=== PATIENT | male | born 1965 | race Two or more races ===

== ENCOUNTER → 2018-01-13 | Outpatient (CLI) | payer OTHER ==
[2014-08-15 13:10] VITALS: BP 119/78
[~2018-01-13] MED LIST: AMLO10TA2 PO; ASPI325T8 PO; ATOR20TA58 PO; INSU100V13 SQ; METO-247 PO; NIAC250T7 PO; SAXA1TBM2 PO
--- NOTE | 2018-01-13 15:43 | KCIC ---
MRI left knee without contrast dated 01/13/2018 2:45 PM Indication: Left knee pain , pain after injury . Pain medial and lateral to patella. Comparison: No comparison is available. Technique: Routine multiplanar multisequence imaging performed. . Findings: Bone marrow signal is homogeneous. No marrow edema. There is mild tricompartmental hypertrophic change with small marginal osteophytes. Mild thinning and surface irregularity of the articular cartilage throughout. Suspected full-thickness cartilage loss at the lateral aspect of the medial tibial plateau. Small joint effusion. No intra-articular loose body. No significant popliteal cyst. Anterior cruciate ligament is of increased signal. Fibers appear to remain anatomically aligned. PCL is intact. Medial and lateral collateral complexes are intact. Iliotibial band, popliteus tendon and pes anserine complex within normal limits. Quadriceps and patellar tendon are intact. No abnormality of the medial or lateral retinaculum. There is a horizontal oblique tear posterior horn/body of medial meniscus. Blunting of the free edge of the posterior horn. Anterior horn is intact. Lateral meniscus normal in morphology and signal. IMPRESSION: 1. Complex tear posterior horn/body of medial meniscus. 2. Mild tricompartmental degenerative arthrosis and chondromalacia. There is near full-thickness cartilage loss at the medial compartment. 3. Increased signal of the anterior cruciate ligament, most likely represents mucoid degeneration. Intrasubstance partial tearing not excluded. 4. Small joint effusion. Electronically signed by: Collin Ryan MD (01/13/2018 3:40 PM) [id number]
== END | disposition home or self-care (01) ==
LOC: KCIC MRI 14:18
PROVIDERS: ATTEND Orthopaedic Surgery
DX: S83.232A Complex tear of medial meniscus, current injury, left knee, initial encounter (principal); M25.462 Effusion, left knee; M17.12 Unilateral primary osteoarthritis, left knee; M94.262 Chondromalacia, left knee; M25.762 Osteophyte, left knee; I25.2 Old myocardial infarction; Z87.442 Personal history of urinary calculi; X58.XXXA Exposure to other specified factors, initial encounter; Y93.89 Activity, other specified; Y92.89 Other specified places as the place of occurrence of the external cause; Y99.8 Other external cause status
CPT/HCPCS: 73721

== ENCOUNTER 2018-01-26 08:02 | Day surgery (SDC) | payer OTHER ==
[~2018-01-26] VITALS: Ht 175.3 cm; Wt 91.4 kg
[~2018-01-26 08:02] MED LIST changes: -AMLO10TA2 PO; +AMLO10TA6 PO; +BUPIVACAINE 0.5% 50 ML VIAL. ONE; +EPINEPHrine VIAL 30 MG/30 ML VIAL ONE; +HYDROmorphone 2 MG/ML VIAL IV PRN; +IV RINGERS,LACTATED 1000ML 1,000 ML IV SCH; +LIDOCAINE 1% PF 2 ML VIAL. ID PRN; +LIDOCAINE 1% PF 30 ML VIAL. ONE; +LISI10TA2 PO; +MORPHINE SULFATE 2 MG/ML VIAL. IV PRN; +ONDANSETRON PF 4 MG/2 ML VIAL. IV PRN; +PROCHLORPERAZINE 10 MG/2 ML VIAL. IV PRN; +SITA1TAB11 PO; +fentaNYL PF VIAL 100 MCG/2 ML VIAL IV PRN
[2018-01-26] MEDS ORDERED: ONDANSETRON PF 4 MG/2 ML VIAL. ONE (08:29)
[2018-01-26] MEDS ORDERED: MIDAZOLAM HCL/PF 2 MG/2 ML VIAL. ONE (08:29)
[2018-01-26] MEDS ORDERED: fentaNYL PF VIAL 250 MCG/5 ML VIAL ONE (08:29)
[2018-01-26] MEDS ORDERED: PROPOFOL 20 ML IV ONE (08:29)
[2018-01-26] MEDS ORDERED: DEXAMETHASONE SOD PHOS 20 MG/5 ML VIAL. ONE (08:29)
--- NOTE | 2018-01-26 08:45 | DISCH ---
DISCHARGE INSTRUCTIONS Condition on Discharge Condition on Discharge: Stable Activity After Discharge Activity Instructions for Disc: Other, see below Bathing Instructions: Shower-keep dressing dry Weight Bearing Status after Di: Non weight bearing Diet after Discharge Diet after Discharge: Regular Wound Incision Care Wound/Incision Care: Ice to area for comfort, Keep wound/cast CDI, Change dressing Contacting the [facility] after DC Call your doctor for: Concerns you may have Follow-Up Follow up with: Maciel in 2 wks ZAKIYA CARRANZA II, MD Jan 26, 2018 08:45
[2018-01-26] MEDS ORDERED: PHENYLEPHRINE in 0.9% NACL PF 1 MG/10 ML SYRINGE. IV ONE (09:40)
[2018-01-26] MEDS ORDERED: SEVOFLURANE 61 TO 120 MINUTES. IH ONE (10:02)
--- NOTE | 2018-01-26 10:04 | PDOC4 ---
Operative Note Operative Note Date of procedure: 01/26/2018 Surgeon: Jacques Carranza Senior Dentist: Tami Kendall Preoperative diagnosis: Left knee cartilage injury Postoperative diagnosis: Same Procedure performed: Left knee arthroscopy, partial meniscectomy, microfracture Findings:grade 3-4 changes 20 x 6 mm posterior aspect medial femoral condyle Intact patellofemoral cartilage Intact lateral compartment Intact lateral meniscus Intact cruciate ligaments Grade 2-3 changes mid medial femoral condyle Complex degenerative type tear medial meniscus Blood loss: 5mL Tourniquet time: less than 60 minutes Anesthesia: Gen. Reason for procedure: Patient is a very pleasant gentleman who is known to me who I had seen after an acute knee injury suffered at work. We had tried an intra-articular injection and anti-inflammatories as well as therapy to help his pain, he got good initial response to the injection, but this pain persisted. Given his clinical and radiographic features, including MRI, I had a discussion of the risks, benefits, and alternatives the above surgery and he wished to proceed. Description of procedure: Patient was greeted in the preoperative area by myself for the correct extremity was verified and marked. He was taken back to the operative suite and his antibiotics were started as he was brought back. Once in the operating room, he was transferred gently supine to the operating room table and secured to bed with all pressure points padded after successful induction of a general anesthetic. I then conducted my examination under anesthesia. Knee was stable to varus and valgus, full range of motion, negative Kita. We then applied and taped in place nonsterile tourniquet to his left upper thigh. I then had a padded bump laterally at his hip and a padded rest first foot to help maintain his leg at 90 passively. We then proceeded prep and drape left lower extremity in our usual sterile fashion and conducted our standard preoperative timeout. I then palpated and marked surface anatomy for my planned portal incisions. Extremity was then exsanguinated with an Esmarch and the tourniquet insufflated to 250 mmHg. After this, I incised skin for my anterolateral arthroscopic portal and introduced a blunt arthroscopic trocar into the suprapatellar pouch followed by the camera. I then conducted my diagnostic arthroscopy with above noted findings and upon entering the medial compartment used a spinal needle to localize an anteromedial portal and incised skin in accordance with this. This hole was dilated. I then continued on with my diagnostic arthroscopy. After completing my diagnostic arthroscopy, a I reentered the medial compartment and debrided the lesion at the posterior aspect , the remainder of this lesion had at least grade 2 changes, but an intact partial-thickness layer of cartilage. He is an open curet and shaver to debride the area free of calcified cartilage and then used a microfracture awl to puncture the subchondral bone allowing marrow extravasation, confirmed under suction from a shaver. After this, I debrided his meniscus tear back to stable edges using a combination of shaver and biter. I then placed the instruments in the suprapatellar pouch and performed repeated aspiration maneuvers with posterior palpation to remove any loose debris. After this I removed all excess arthroscopic fluid and the arthroscopic its mentation and closed the portals with simple interrupted 3-0 nylon. The leg was cleansed and dried and a sterile dressing was applied. This was held in place with an Julio César wrap. Patient was then awakened from anesthesia, tourniquet was let down. He was then transferred gently supine to the recovery room cart and taken to PACU in a stable and extubated condition. Postoperative plan is nonweightbearing 6 weeks. Hell be discharged home. Wound care instructions were discussed with his family member and given in written form. I will see him back in 2 weeks, sooner should a problem arise JACQUES CARRANZA II, MD Jan 26, 2018 10:04
[2018-01-26] MEDS ORDERED: oxyCODONE/APAP 5/325 1 TAB TABLET PO ONE (10:15)
[2018-01-26 11:20] VITALS: BP 114/70
== END 2018-01-26 11:20 | disposition home or self-care (01) ==
LOC: SURG 08:02
PROVIDERS: ATTEND Orthopaedic Surgery Sports Medicine
DX: S83.232A Complex tear of medial meniscus, current injury, left knee, initial encounter (principal); I10 Essential (primary) hypertension; E78.5 Hyperlipidemia, unspecified; E11.9 Type 2 diabetes mellitus without complications; Z98.890 Other specified postprocedural states; Z95.5 Presence of coronary angioplasty implant and graft; F17.210 Nicotine dependence, cigarettes, uncomplicated; Z83.6 Family history of other diseases of the respiratory system; Z91.041 Radiographic dye allergy status; Z79.84 Long term (current) use of oral hypoglycemic drugs; Z79.899 Other long term (current) drug therapy; W13.3XXA Fall through floor, initial encounter; Y93.39 Activity, other involving climbing, rappelling and jumping off; Y92.89 Other specified places as the place of occurrence of the external cause; Y99.8 Other external cause status
CPT/HCPCS: 29879; 29881; 82962; A7015; C1782; J0171; J0690; J1100; J2250; J2370; J2405; J2704; J3010; J3490

== ENCOUNTER → 2019-10-13 | Outpatient (CLI) | payer OTHER ==
[~2019-10-13] MED LIST changes: -AMLO10TA6 PO; +AMLO10TA8 PO; -BUPIVACAINE 0.5% 50 ML VIAL. ONE; -EPINEPHrine VIAL 30 MG/30 ML VIAL ONE; -HYDROmorphone 2 MG/ML VIAL IV PRN; -IV RINGERS,LACTATED 1000ML 1,000 ML IV SCH; -LIDOCAINE 1% PF 2 ML VIAL. ID PRN; -LIDOCAINE 1% PF 30 ML VIAL. ONE; -MORPHINE SULFATE 2 MG/ML VIAL. IV PRN; -ONDANSETRON PF 4 MG/2 ML VIAL. IV PRN; -PROCHLORPERAZINE 10 MG/2 ML VIAL. IV PRN; -fentaNYL PF VIAL 100 MCG/2 ML VIAL IV PRN
--- NOTE | 2019-10-13 17:22 | RAD ---
EXAM: MRI left upper extremity without contrast DATE: 10/13/2019 INDICATION: Triceps injury COMPARISON: None TECHNIQUE: Multiplanar, multisequence imaging of the left elbow without contrast FINDINGS: Exam is limited by poor iijypc-is-[id number] ratio on multiple sequences. Bones and soft tissue: No acute fracture. No marrow edema. Cartilage is grossly intact. Ligaments: The ulnar collateral ligament, lateral ulnar collateral ligament, and radial collateral ligament are grossly intact. Tendons: Common flexor tendon origin is intact. Minimal tendinopathy of the common extensor tendon origin. Distal biceps and brachialis tendons are intact. The distal biceps tendon is intact and normal in signal and thickness. Other: Muscles are normal. No joint effusion or bursitis. Neurovascular structures are unremarkable. IMPRESSION: 1. No evidence of triceps tendon tear or other acute abnormality of the elbow. 2. Minimal tendinopathy of the common extensor tendon origin, likely chronic. Electronically signed by: Cony Bowles MD (10/13/2019 5:19 PM) [id number]
== END | disposition home or self-care (01) ==
LOC: MRI 14:51
PROVIDERS: ATTEND Orthopaedic Surgery Sports Medicine
DX: S46.302A Unspecified injury of muscle, fascia and tendon of triceps, left arm, initial encounter (principal); X58.XXXA Exposure to other specified factors, initial encounter; Y93.89 Activity, other specified; Y92.89 Other specified places as the place of occurrence of the external cause; Y99.8 Other external cause status
CPT/HCPCS: 73221

== ENCOUNTER → 2020-02-06 | Outpatient (CLI) | payer OTHER ==
[~2020-02-06] MED LIST changes: +CETI10TA74 PO; +HYDR-3165 PO; +INSU100I13 SQ; +LINA1TAB7 PO; +MONT10TA49 PO; +OXYC1TAB19 PO
== END ==
LOC: LAB 14:10
PROVIDERS: ATTEND Orthopaedic Surgery
DX: Z01.812 Encounter for preprocedural laboratory examination (principal); Z20.828 Contact with and (suspected) exposure to other viral communicable diseases; G56.02 Carpal tunnel syndrome, left upper limb
CPT/HCPCS: U0003-CS

== ENCOUNTER 2020-02-09 06:03 | Day surgery (SDC) | payer OTHER ==
[~2020-02-09 06:03] MED LIST changes: -HYDR-3165 PO
[2020-02-09] MEDS: INSULIN LISPRO 100 UNIT/ML 3ML VIAL for OP,RR ONLY. SQ PRN ×2 (06:37→08:43)
[2020-02-09] MEDS ORDERED: fentaNYL PF VIAL 100 MCG/2 ML VIAL IV PRN ×2 (07:00)
[2020-02-09] MEDS ORDERED: LIDOCAINE 1% PF 2 ML VIAL. ID PRN (07:00)
[2020-02-09] MEDS ORDERED: MORPHINE SULFATE 2 MG/ML VIAL. IV PRN (07:00)
[2020-02-09] MEDS ORDERED: ONDANSETRON PF 4 MG/2 ML VIAL. IV PRN (07:00)
[2020-02-09] MEDS ORDERED: PROCHLORPERAZINE 10 MG/2 ML VIAL. IV PRN (07:00)
[2020-02-09] MEDS ORDERED: HYDROmorphone 2 MG/ML VIAL IV PRN (07:00)
[2020-02-09] MEDS ORDERED: IV RINGERS,LACTATED 1000ML 1,000 ML IV SCH (07:00)
[2020-02-09] MEDS ORDERED: LIDOCAINE 2% PF 5 ML VIAL. ONE (07:02)
[2020-02-09] MEDS ORDERED: MIDAZOLAM HCL/PF 2 MG/2 ML VIAL. ONE (07:02)
[2020-02-09] MEDS ORDERED: BUPIVACAINE MPF 0.25% 30 ML VIAL. ONE (07:02)
[2020-02-09] MEDS ORDERED: BUPIVACAINE-EPI 0.5%-1:200000 MPF 30 ML VIAL. ONE (07:02)
[2020-02-09] MEDS ORDERED: PROPOFOL 10 MG/ML (20ML) VIAL. IV ONE ×2 (07:02→07:25)
[2020-02-09] MEDS ORDERED: ONDANSETRON PF 4 MG/2 ML VIAL. ONE (07:02)
[2020-02-09] MEDS ORDERED: DEXAMETHASONE SOD PHOS 4 MG/ML VIAL ONE (07:02)
[2020-02-09] MEDS ORDERED: fentaNYL PF VIAL 100 MCG/2 ML VIAL ONE (07:15)
[2020-02-09] MEDS ORDERED: HYDR-3165 PO (07:17)
[2020-02-09] MEDS ORDERED: SEVOFLURANE 31 TO 60 MINUTES. IH ONE (07:40)
[2020-02-09] MEDS ORDERED: ePHEDrine PF IN SALINE 50 MG/10 ML SYRINGE. IV ONE (07:45)
--- NOTE | 2020-02-09 08:19 | DISCH ---
DISCHARGE INSTRUCTIONS Condition on Discharge Condition on Discharge: Stable Activity After Discharge Activity Instructions for Disc: Other, see below Bathing Instructions: Shower-keep dressing dry Weight Bearing Status after Di: Partial weight bearing (Fine motor use such as eating writing typing okay no hard grasping pushing pulling lifting, please keep fingers and elbows moving) Diet after Discharge Diet after Discharge: Regular Wound Incision Care Wound/Incision Care: Ice to area for comfort, Do not change dressing (May change dressing if soiled otherwise keep dry) Contacting the [facility] after DC Call your doctor for: Concerns you may have Follow-Up Follow up with: Dr. Alexander 10 days RUTHIE ALEXANDER MD Feb 09, 2020 08:19
--- NOTE | 2020-02-09 08:29 | PDOC4 ---
Operative Note Operative Note Date of surgery: 02/09/2020 Preoperative diagnosis: Left carpal and cubital tunnel syndrome Postoperative diagnosis: Same with moderate compression of ulnar nerve at cubital tunnel and median nerve at carpal tunnel Operative procedure: Left carpal and cubital tunnel releases Surgeon: Catherine Knocker Out: Jermain mosley Anesthesia: General Complications: None Estimated blood loss: 5 cc Operative indications: Please see my orthopedic clinic note for detailed operative indications and note that he did have EMG confirmation of median nerve compression at the carpal tunnel and although minimal EMG findings at the cubital tunnel he has severe ulnar neuropathy really more symptomatic than the paresthesias at the carpal tunnel median nerve distribution. I had gone over the rationale for release of both as a result of his symptoms and the possibility of continued symptoms nerve or blood vessel damage medical or other anesthetic complications among others all his questions were answered and he wishes to proceed with surgical evaluation and treatment. Operative text: Patient was identified procedure verified patient placed in the supine position on the operating table. After adequate amounts of general anesthesia were administered the left upper extremity was prepped and draped in standard sterile fashion with an upper arm tourniquet. After timeout was performed patient procedure identified and verified the left upper extremity was exsanguinated by Esmarch bandage tourniquet inflated to 250 mmHg and a longitudinal incision was made just distal to the distal palmar crease and dissection carried out to the transverse carpal ligament which was divided under direct visualization sharply and verified to be released proximally and distally both visually and by palpation. Median nerve was noted to have moderate compression and the flexor tendons noted to be intact without signs of synovitis. Attention was then turned to the medial elbow where a curvilinear incision was made and dissection was carried out down to the cubital tunnel which was divided throughout its length and release was carried out proximally to the intermuscular septum and distally as it dove into the flexor musculature and moderate ulnar nerve compression was noted particularly throughout the course of the cubital tunnel itself. No instability or subluxation was noted nerve was completely released and closure accomplished with buried Vicryl suture and closure of both the elbow and hand incisions was carried out with nylon sutures sterile soft dressings were applied fingers were noted to be warm and pink following deflation of the tourniquet and patient was returned to recovery room in stable condition having tolerated procedure well. Jermain Shahid versus marilee was present for the procedure assisted in the patient positioning prepping draping retraction closure and dressings RUTHIE GUZMAN MD Feb 09, 2020 08:29
[2020-02-09] MEDS ORDERED: HYDROcodone/APAP 7.5/325MG 1 TAB TABLET PO ONE (08:30)
[2020-02-09 08:45] VITALS: BP 142/82
[2020-02-09] MEDS ORDERED: INSULIN LISPRO 100 UNIT/ML 3ML VIAL for OP,RR ONLY. SQ ONE ×2 (09:00)
== END 2020-02-09 09:09 | disposition home or self-care (01) ==
LOC: SURG 06:03
PROVIDERS: ATTEND Orthopaedic Surgery
DX: G56.22 Lesion of ulnar nerve, left upper limb (principal); G56.02 Carpal tunnel syndrome, left upper limb; E11.9 Type 2 diabetes mellitus without complications; I10 Essential (primary) hypertension; Z88.8 Allergy status to other drugs, medicaments and biological substances; Z79.82 Long term (current) use of aspirin; Z79.899 Other long term (current) drug therapy
CPT/HCPCS: 64718; 64721; 82962; J0690; J1100; J1815; J2405; J2704; J3010; J7120; J2250; J3490

== ENCOUNTER → 2020-06-13 | Outpatient (CLI) | payer OTHER ==
[~2020-06-13] MED LIST changes: +AMLO-187 PO; -AMLO10TA8 PO; +CLIN150C15 PO; +HYDR-3165 PO; +LISI10TA16 PO; -LISI10TA2 PO; +NEOM28.33 TP; +OXYC1TAB15 PO; +VITA1TAB31 PO; +tumeric
--- NOTE | 2020-06-14 10:06 | KCIC ---
MR CERVICAL SPINE WO History:Reason: CERVICAL NEURITIS / Spl. Instructions: / History: Right sided neck pain and tension into top of right shoulder. Technique: Multiplanar, multi sequential noncontrast MR imaging was performed of the cervical spine. Comparison: None Findings: Normal vertebral body height and alignment. No fracture. No pathologic signal abnormality within the cervical spinal cord. C2-C3: No canal narrowing. Uncovertebral and facet arthropathy. Severe right and mild left neurofora kunal narrowing. C3-C4: Posterior disc osteophyte complex. Mild canal narrowing. Cord flattening. Uncovertebral and f acet arthropathy. Severe left and moderate right neuroforaminal narrowing. C4-C5: Posterior disc osteophyte complex. Mild canal narrowing. Cord flattening. Uncovertebral and f acet arthropathy. Severe left and moderate right neuroforaminal narrowing. C5-C6: Posterior disc osteophyte complex. Moderate canal narrowing. Cord flattening. Uncovertebral a nd facet arthropathy. Severe bilateral neuroforaminal narrowing. C6-C7: Posterior disc osteophyte complex. Mild canal narrowing. Cord flattening. Uncovertebral and facet arthropathy. Severe bilateral neuroforaminal narrowing. C7-T1: Disc bulge. No canal narrowing. Facet arthropathy. Mild left neuroforaminal narrowing. Upper thoracic facet arthropathy with moderate T1-T2 neuroforaminal narrowing. Impression: 1. Moderate multilevel cervical spondylosis with multilevel canal narrowing and cord flattening. 2. Moderate C5-C6 canal narrowing with cord flattening. 3. Multilevel severe neuroforaminal narrowing. Electronically signed by: Luis Smith DO (06/14/2020 10:04 AM) [id number]
== END ==
LOC: KCIC MRI 13:41
PROVIDERS: ATTEND Physician Assistant
DX: M47.23 Other spondylosis with radiculopathy, cervicothoracic region (principal); M48.03 Spinal stenosis, cervicothoracic region
CPT/HCPCS: 72141

== ENCOUNTER → 2020-07-01 | Outpatient (CLI) | payer OTHER ==
[~2020-07-01] MED LIST changes: -CLIN150C15 PO; +IOHEXOL 180 MG/ML 10 ML VIAL. ONE; -NEOM28.33 TP; +methylPREDNISolone ACETATE 40 MG/ML VIAL. ONE; +methylPREDNISolone ACETATE 80 MG/ML VIAL. ONE
--- NOTE | 2020-07-01 14:43 | PDOC1 ---
INITIAL PAIN CONSULT DATE OF SERVICE: DOS: DATE: 07/01/20 TIME: 14:36 CHIEF COMPLAINT: Chief Complaint: Neck and right shoulder and upper extremity pain HISTORY OF PRESENT ILLNESS: 55-year-old male presents with pain history in the right base of the neck and right shoulder and arm for many years. 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 no specific injury recently but is been building up over time with pain base the neck and right upper extremity rating the posterior deltoid posterior shoulder into the anterior bicep and into the forearm and hand as well on the right side mostly patient reports its weaker with repetitive motions of the right arm but is not having trouble dropping any items also worse with lifting or reaching over his head with his right hand disturbed sleep about 4 times a night patient reports he has been taking some [id number]-[id number] ibuprofen as well as prescription oxycodone which decrease the pain but only by a small amount patient has had physical therapy trigger point injections in the past exercising is currently doing as well. Patient rates his disability rating 0-10 10 being the worst is a 7 with him home responsibilities and recreation 6 with occupational activity 5 with social activity 3 with self-care to 5 support activities patient did have MRI scan of the cervical spine which was dated in October 11, 2020 showing moderate multilevel cervical spondylosis moderate C5-6 canal narrowing with cord flattening posterior disc osteophyte complex C3-4 through C6-7 with severe bilateral foraminal narrowing at C3-4 through C6-7 as well. Patient cries pain is constant stabbing aching in the neck primarily increasing at night change with activity worse with repetitive motions and lifting is noted no overt motor loss. PAST MEDICAL HISTORY: PMH: Hypertension, type 2 diabetes, coronary disease, arthritis PREVIOUS SURGERIES: Past Surgical Hx: Coronary artery stents placed CURRENT MEDICATIONS: Current Meds: Active Scripts Medications Dose Route/Sig Max Daily Dose Days Date Category Percocet 5-325 Mg Tablet (Oxycodone/Acetaminophen) 1 Each Tablet 2 Tab PO PRN BID PRN MDD 2 Tablet(s) 5 07/01/20 Reported [tumeric] 500 Cap 07/01/20 Reported D3 + K2 Dots 1,000 Units Tab (Vitamin D3/Vitamin K2) 1 Each Tab.rapdis 1 Tab PO DAILY 30 07/01/20 Reported Lantus Solostar (Insulin Glargine,Hum.rec.anlog) 100 Unit/1 Ml Insuln.pen 20 Unit SQ HS 02/07/20 Reported Montelukast Sodium Tablet (Montelukast Sodium) 10 Mg Tablet 10 Mg PO HS 02/07/20 Reported Zyrtec (Cetirizine Hcl) 10 Mg Tablet 10 Mg PO DAILY 02/07/20 Reported Jentadueto Xr 2.5 mg-1,000 mg (Linagliptin/Metformin HCl) 1 Each Tab.bp.24h 1 Each PO BID 02/07/20 Reported Lisinopril 10 Mg Tablet 20 Mg PO DAILY 01/25/18 Reported Aspirin 325 Mg Tablet 325 Mg PO DAILY 08/10/14 Reported Metoprolol Succinate ( Xl ) (Metoprolol Succinate) 100 Mg Tab.er.24h 100 Mg PO DAILY08 08/10/14 Reported Atorvastatin Calcium 20 Mg Tablet 10 Mg PO HS 08/10/14 Reported ALLERGIES; Allergies: Coded Allergies: Iodinated Contrast Media (Verified Allergy, Intermediate, Swelling, 02/09/20) facial swelling FAMILY HISTORY: Family Hx: Hypertension SOCIAL HISTORY: Social Hx: Patient does not alcohol smokes cigarettes less than a pack a day for the past 40 years continues to smoke does not use any illegal illicit recreational drugs is lives with his spouse lives locally in [facility] REVIEW OF SYSTEMS: ROS: Positive for those items mentioned in history of present illness, all systems are reviewed, otherwise negative ,and are complete full and well-documented on patient's chart. PHYSICAL EXAM: VS: Pressure is 137/79 pulse 88 respirations 16 temperature is 98.4 F height is 5 9 inches weight is 202 pounds. PE: PHYSICAL EXAMINATION: GENERAL: The patient is awake, alert, oriented, appropriate, very pleasant demeanor HEENT: Shows normocephalic, atraumatic. Extraocular movements are intact and symmetrical. Oral cavity: Mucous membranes moist and pink. Dentition is intact. NECK: Shows anterior throat supple without palpable lymphadenopathy noted. Swallow reflex symmetrical. CHEST: Shows normal on inspection. Breath sounds are clear bilaterally, no rales rhonchi wheezes auscultated. HEART: Shows S1, S2 clear. No murmurs auscultated. ABDOMEN: Soft, nontender, nondistended, obese. No palpable organomegaly is noted. No rebound or guarding demonstrated. BACK: Shows spine grossly in the midline. Normal-appearing cervical lordotic curvature. Cervical paraspinous muscles show symmetrical on inspection on palpation some moderate tenderness diffusely in the inferior aspect of the cervical paraspinous muscles are slightly more on the right than the left but without atrophy hypertrophy or asymmetry. Patient shows good rotation motion both laterally as well as extension flexion with some minor pain with right lateral rotation only. There is slightly increased thoracic kyphosis, some minor flattening of the lumbar lordotic curvature. EXTREMITIES: Upper extremities show deep tendon reflexes 2+ in the biceps and triceps tendons. 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 Peripheral pulses are 2+ radial. No peripheral edema is noted bilaterally. Upper extremities are warm and dry to touch, equal in color and appearance. SKIN: Shows warm and dry, good turgor. No edema. No sores, rashes or bruising throughout. IMPRESSION: Impression: 55-year-old male with long history of pain base the neck right upper extremity and shoulder in a radicular fashion MRI scan cervical spine as noted Type 2 diabetes Hypertension Arthritis Plan: Options were discussed with the patient including conservative medical management physical therapies interventional techniques. He would like to pursue interventional techniques. We discussed a cervical epidural steroid injection using description as well as anatomical models described procedure. Risks were discussed including but not limited to: Bleeding, infection, possibility of epidural hematoma and subsequent neurological compromise, dural puncture, headaches, spinal cord and/or nerve damage, side effects of steroid medication, and poor results regarding pain control. Patient understands and wished to proceed. Patient will return to clinic in approximate 2 weeks for follow-up, was counseled as to return appointment activity level and side effects to be aware of. Procedure cervical epidural steroid injection at the C6-7 level, using local anesthetic under sterile prep and drape using C-arm fluoroscopic guidance under local anesthesia medications injected ; 120 mg Depo-Medrol + 5 mL normal saline and 2 mL contrast; condition at discharge is stable patient tolerated procedure well. and had no complications ASHLEY WILLS MD Jul 01, 2020 14:43
== END | disposition home or self-care (01) ==
LOC: PNCL 13:29
PROVIDERS: ATTEND Anesthesiology
DX: M54.2 Cervicalgia (principal); M47.812 Spondylosis without myelopathy or radiculopathy, cervical region; M25.511 Pain in right shoulder; I10 Essential (primary) hypertension; E11.9 Type 2 diabetes mellitus without complications; M19.90 Unspecified osteoarthritis, unspecified site; I25.10 Atherosclerotic heart disease of native coronary artery without angina pectoris; E78.00 Pure hypercholesterolemia, unspecified; E66.9 Obesity, unspecified; Z79.82 Long term (current) use of aspirin; Z79.4 Long term (current) use of insulin; Z79.899 Other long term (current) drug therapy; Z98.890 Other specified postprocedural states; Z87.891 Personal history of nicotine dependence; Z82.49 Family history of ischemic heart disease and other diseases of the circulatory system; Z91.041 Radiographic dye allergy status
CPT/HCPCS: 62321; J1030; J1040; Q9965

== ENCOUNTER → 2020-07-15 | Outpatient (CLI) | payer OTHER ==
[~2020-07-15] MED LIST changes: -IOHEXOL 180 MG/ML 10 ML VIAL. ONE
--- NOTE | 2020-07-15 14:24 | PDOC ---
Progress Note - Pain Clinic Date of Service: DOS: DATE: 07/15/20 TIME: 14:20 Diagnosis: Dx: Cervical radiculopathy with cervical degenerative disc disease History or Present Illness: HPI: 55-year-old male returns for follow-up status post cervical epidural steroid injection x1. Patient reports near unobtainable week and the pain began to return the base the neck and the right upper extremity but not quite back to baseline. Patient reports its worse with repetitive motion reaching over his head with his right arm weight lifting and occasionally wakes him from sleep. Patient reports is a 5 on a scale of 10 is worse with the past week 3 on average 1 its least a 3 today. Patient which is aching can be constant at times by the first week or so the pain was still most 100% relieved. Patient reports no new motor or sensory deficits or other complaints. Physical Exam: VS: Blood pressure is 159/99 pulse 74 respirations 18 temperature 90.4 F weight is 200 pounds PE: PHYSICAL EXAMINATION: GENERAL: The patient is awake, alert, oriented, appropriate, very pleasant demeanor HEENT: Shows normocephalic, atraumatic. Extraocular movements are intact and symmetrical. Oral cavity: Mucous membranes moist and pink. Dentition is intac t. NECK: Shows anterior throat supple without palpable lymphadenopathy noted. Swallow reflex symmetrical. CHEST: Shows normal on inspection. Breath sounds are clear bilaterally. HEART: Shows S1, S2 clear. No murmurs auscultated. ABDOMEN: Soft, nontender, nondistended, obese. No palpable organomegaly is noted. BACK: Shows spine grossly in the midline. Normal-appearing cervical lordotic curvature. Cervical paraspinous posterior shows symmetrical inspection with palpation some moderate tenderness diffusely but only in the middle and lower distribution paraspinous muscle slightly more on the right than the left appears symmetrical. Patient shows good rotation motion cervical spine both laterally greater than 45 degrees right level is full extension full forward flexion without significant increase in pain. There is increased thoracic kyphosis, some flattening of the lumbar lordotic curvature. EXTREMITIES: Upper extremities show deep tendon reflexes 2+ in the biceps and triceps tendons. Motor exam is 5 on a scale of 5 with right transition rn, biceps and triceps flexion and 5/5 on the left. Peripheral pulses are 2+ radial. No peripheral edema is noted bilaterally. Upper extremities are warm and dry to touch, equal in color and appearance. SKIN: Shows warm and dry, good turgor. No edema. No sores, rashes or bruising throughout. Procedure: Procedure: Options discussed with patient. Patient chart reviews his current medication regimen updated current review of systems updated today as well. We will proceed with a second cervical epidural steroid ejections today with fluoroscopic guidance. Risks were discussed including but not limited to: Bleeding, infection, possibility of epidural hematoma and subsequent neurological compromise, dural puncture, headaches, spinal cord and/or nerve damage, side effects of steroid medication, and poor results regarding pain control. Patient understands and wished to proceed. Patient will return to clinic in approximate 2 weeks for follow-up, was counseled as to return appointment active level, and side effects to be aware of. Medication Injected: Med Injected: Procedure cervical epidural steroid injection at the C6-7 level, using local anesthetic under sterile prep and drape using C-arm fluoroscopic guidance under local anesthesia medications injected ; 120 mg Depo-Medrol + 5 mL normal saline and 2 mL contrast; condition at discharge is stable patient tolerated procedure well. and had no complications Condition at Discharge: Condition at Discharge: Condition at discharge stable, patient alert the procedure well and had no complications. ASHLEY WILLS MD Jul 15, 2020 14:24
--- NOTE | 2020-07-15 14:24 | PDOC4 ---
PROCEDURE Procedure Patient is consented for cervical epidural steroid injection. Risks were di scussed including but not limited to: Bleeding, infection, possibility of epidural hematoma and subsequent neurological compromise, dural puncture, headaches, spinal cord and/or nerve damage, side effects of steroid medication, and poor results regarding pain control. Patient understands and wished to proceed. Procedure cervical epidural steroid injection at the C6-7 level, using local anesthetic under sterile prep and drape using C-arm fluoroscopic guidance under local anesthesia medications injected ; 120 mg Depo-Medrol + 5 mL normal saline and 2 mL contrast; condition at discharge is stable patient tolerated procedure well. and had no complications ASHLEY WILLS MD Jul 15, 2020 14:24
== END | disposition home or self-care (01) ==
LOC: PNCL 13:27
PROVIDERS: ATTEND Anesthesiology
DX: M50.10 Cervical disc disorder with radiculopathy, unspecified cervical region (principal); I25.10 Atherosclerotic heart disease of native coronary artery without angina pectoris; E78.00 Pure hypercholesterolemia, unspecified; I10 Essential (primary) hypertension; E66.9 Obesity, unspecified; E11.9 Type 2 diabetes mellitus without complications; M19.90 Unspecified osteoarthritis, unspecified site; Z79.82 Long term (current) use of aspirin; Z79.84 Long term (current) use of oral hypoglycemic drugs; Z79.899 Other long term (current) drug therapy; Z98.890 Other specified postprocedural states; Z72.89 Other problems related to lifestyle; Z91.041 Radiographic dye allergy status
CPT/HCPCS: 62321; J1030; J1040

== ENCOUNTER → 2020-08-05 | Outpatient (CLI) | payer OTHER ==
[~2020-08-05] MED LIST changes: +IOHEXOL 180 MG/ML 10 ML VIAL. ONE
--- NOTE | 2020-08-05 14:32 | PDOC ---
Progress Note - Pain Clinic Date of Service: DOS: DATE: 08/05/20 TIME: 14:28 Diagnosis: Dx: Cervical radiculopathy with cervical degenerative disc disease History or Present Illness: HPI: 55-year-old male returns to follow-up status post cervical epidurals or injection x2. Patient reports doing very well about 98% improved still with some pain in the base the neck on the right shoulder and right upper extremity but only very minimal patient reports its about a 5 on a scale 10 is worse over the past week is a 2 on average 0 its least is a 2 today. Patient reports still some pain that is on and off and tensing the base the neck on the right shoulder and arm but only infrequently and only with repetitive motions or lifting items over his head using his right arm repetitively with driving or operating power tools and machinery. Patient reports generally is not awakening from sleep at night but can occasionally patient reports no new motor or sensory deficits no new bowel or bladder incontinence or other complaints. Physical Exam: VS: Blood pressure is 145/99 pulse 81 respirations are 18 temperature 98.5 F weight is 199 pounds PE: PHYSICAL EXAMINATION: GENERAL: The patient is awake, alert, oriented, appropriate, very pleasant demeanor HEENT: Shows normocephalic, atraumatic. Extraocular movements are intact and symmetrical. Oral cavity: Mucous membranes moist and pink. Dentition is intact. NECK: Shows anterior throat supple without palpable lymphadenopathy noted. Swallow reflex symmetrical. CHEST: Shows normal on inspection. Breath sounds are clear bilaterally, no rales or rhonchi. HEART: Shows S1, S2 clear. No murmurs auscultated. ABDOMEN: Soft, nontender, nondistended, obese. No palpable organomegaly is noted. No rebound or guarding demonstrated. BACK: Shows spine grossly in the midline. Normal-appearing cervical lordotic curvature. Cervical paraspinous muscles show symmetrical inspection on palpation some tenderness diffusely in the bilateral middle and lower cervical paraspinous posture more on the right than the left but without trigger points without atrophy or hypertrophy, patient shows good rotation motion cervical spine both laterally greater than 45 degrees closer to 90 degrees as well as full extension full forward flexion without significant increase in pain or radiation. There is slightly increased thoracic kyphosis, some minor flattening of the lumbar lordotic curvature. EXTREMITIES: Upper extremities show deep tendon reflexes 2+ in the biceps and triceps tendons. 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 Peripheral pulses are 2+ radial. No peripheral edema is noted bilaterally. Upper extremities are warm and dry to touch, equal in color and appearance. SKIN: Shows warm and dry, good turgor. No edema. No sores, rashes or bruising throughout. Procedure: Procedure: Options were discussed with the patient. Patient will chart was reviewed his his current medication regimen updated current review of systems updated today as well. We will proceed with a third in the series cervical epidural steroid ejections stable fluoroscopic guidance. Risks were discussed including but not limited to: Bleeding, infection, possibility of epidural hematoma and subsequent neurological compromise, dural puncture, headaches, spinal cord and/or nerve damage, side effects of steroid medication, and poor results regarding pain control. Patient understands and wished to proceed. Patient will return to the clinic in approximate 2 weeks for follow-up, was counseled as return appointment, activity level, and side effects to be aware of. Medication Injected: Med Injected: Procedure cervical epidural steroid injection at the C6-7 level, using local anesthetic under sterile prep and drape using C-arm fluoroscopic guidance under local anesthesia medications injected ; 120 mg Depo-Medrol + 5 mL normal saline and 2 mL contrast; condition at discharge is stable patient tolerated procedure well. and had no complications Condition at Discharge: Condition at Discharge: Condition at discharge is stable, patient tolerated the procedure well and had no complications. ASHLEY WILLS MD Aug 05, 2020 14:32
--- NOTE | 2020-08-05 14:33 | PDOC4 ---
PROCEDURE Procedure Patient was consented for cervical epidural steroid injection. Risks were d iscussed including but not limited to: Bleeding, infection, possibility of epidural hematoma and subsequent neurological compromise, dural puncture, headaches, spinal cord and/or nerve damage, side effects of steroid medication, and poor results regarding pain control. Patient understands and wished to proceed. Procedure cervical epidural steroid injection at the C6-7 level, using local anesthetic under sterile prep and drape using C-arm fluoroscopic guidance under local anesthesia medications injected ; 120 mg Depo-Medrol + 5 mL normal saline and 2 mL contrast; condition at discharge is stable patient tolerated procedure well. and had no complications ASHLEY WILLS MD Aug 05, 2020 14:32
== END | disposition home or self-care (01) ==
LOC: PNCL 14:00
PROVIDERS: ATTEND Anesthesiology
DX: M50.10 Cervical disc disorder with radiculopathy, unspecified cervical region (principal); I25.10 Atherosclerotic heart disease of native coronary artery without angina pectoris; I10 Essential (primary) hypertension; E78.00 Pure hypercholesterolemia, unspecified; E66.9 Obesity, unspecified; M19.90 Unspecified osteoarthritis, unspecified site; E11.9 Type 2 diabetes mellitus without complications; Z79.899 Other long term (current) drug therapy; Z98.890 Other specified postprocedural states; Z79.82 Long term (current) use of aspirin; Z87.891 Personal history of nicotine dependence; Z91.041 Radiographic dye allergy status; Z88.8 Allergy status to other drugs, medicaments and biological substances
CPT/HCPCS: 62321; J1030; J1040; Q9965; 77002

== ENCOUNTER 2020-10-25 18:44 | Emergency (ER) | payer OTHER ==
[~2020-10-25] VITALS: Ht 175.3 cm; Wt 87.7 kg
[~2020-10-25 18:44] MED LIST changes: -IOHEXOL 180 MG/ML 10 ML VIAL. ONE; -methylPREDNISolone ACETATE 40 MG/ML VIAL. ONE; -methylPREDNISolone ACETATE 80 MG/ML VIAL. ONE
[2020-10-25] MEDS ORDERED: ACETAMINOPHEN 325 MG TABLET. PO ONE (23:30)
[2020-10-26] MEDS ORDERED: LIDOCAINE 1% Multi-Dose 20 ML VIAL. INJ ONE
[2020-10-26] MEDS ORDERED: NEOMY/BACITR/POLYMYXIN OINT PACKET. TP ONE
--- NOTE | 2020-10-26 01:01 | RAD ---
XR FINGER(S)_LEFT 2+VIEWS_RT History: Reason: index, 2nd digit / Spl. Instructions: / History: Pain Technique: PA view the hand and 2 additional views of the second digit. Comparison: None. Findings: Normal alignment. No fracture. Soft tissues unremarkable. Mild degenerative changes within the distal interphalangeal joints. Mild first carpal metacarpal triscaphe DJD. Impression: 1. No acute osseous abnormality. Electronically signed by: Luis Smith DO (10/26/2020 12:59 AM) [facility]
[2020-10-26] MEDS ORDERED: NEOM28.33 TP (01:25)
[2020-10-26] MEDS ORDERED: CLIN150C15 PO (01:25)
--- NOTE | 2020-10-26 01:29 | PHYS DOC ---
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 Reports he was using a chain saw and nicked the side of his finger. Tetanus was 4 years ago. 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 Denies any decreased range of motion of the finger. Reports he recently was given Keflex and another medication for an abscess in his right axilla, Keflex caused diarrhe a. Review of Systems: Review of Systems: Constitutional: Denies fever or chills. [] Eyes: Denies change in visual acuity. [] HENT: Denies nasal congestion or sore throat. [] Respiratory: Denies cough or shortness of breath. [] Cardiovascular: Denies chest pain or edema. [] GI: Denies nausea, vomiting, Musculoskeletal: Denies decreased range of motion or focal joint pain/deformity Integument: Denies rash or brisk bleeding, no skin color changes Neuro: Denies decrease in sensation or movement Psychiatric: Denies depression or anxiety. [] Heart Score: C/O Chest Pain: No Risk Factors: Risk Factors: DM, Current or recent (<one month) smoker, HTN, HLP, family history of CAD, obesity. Risk Scores: Score 0 - 3: 2.5% MACE over next 6 weeks - Discharge Home Score 4 - 6: 20.3% MACE over next 6 weeks - Admit for Clinical Observation Score 7 - 10: 72.7% MACE over next 6 weeks - Early Invasive Strategies Current Medications: Current Medications Medications (Trade) Dose Ordered Sig/Roni Start Time Stop Time Status Last Admin Dose Admin Acetaminophen (Tylenol) 650 mg 1X ONCE 10/25/20 23:30 10/25/20 23:31 DC 10/25/20 23:40 650 MG Lidocaine HCl (Lidocaine 1% 20ml Vial) 20 ml 1X ONCE 10/26/20 00:00 10/26/20 00:01 DC Neomycin/ Polymyxin/ Bacitracin (Triple Antibiotic Ointment) 1 pkt 1X ONCE 10/26/20 00:00 10/26/20 00:01 DC Allergies: Allergies: Allergies Coded Allergies Type Severity Reaction Last Updated Verified Iodinated Contrast Media Allergy Intermediate Swelling 02/09/20 Yes Physical Exam: PE: Constitutional: Well developed, well nourished, no acute distress, non-toxic appearance. HENT: Normocephalic, atraumatic, Eyes: EOMI, conjunctiva normal, no discharge. Neck: Normal range of motion, supple, Cardiovascular: S1/2 present, regular rhythm Lungs & Thorax: Speaking in full sentences, bilateral equal chest rise, no tachypnea or increased work of breathing Skin: Warm, dry, no erythema, no rash. [] Extremities: Left second index finger with lateral abrasion 1.5cm over DIP joint with 2mm region of skin avulsion - no overlying skin, no subungual hematoma, cap refill less than 1 second, neurovascular intact, normal range of motion of patient's index finger, left wrist or hand or elbow (splint on elbow) Neurologic: Alert and oriented X 3, no focal deficits noted. [] Psychologic: Affect normal, calm mood-very patient given delayed ed wait time due to high volume EKG: EKG: [] Radiology/Procedures: Radiology/Procedures: [] Course & Med Decision Making: Course & Med Decision Making Pertinent Labs and Imaging studies reviewed. (See chart for details) Concern for accidental injury to nondominant index finger, patient requested a digital block for wound irrigation -performed with 1% lidocaine. Wound appears to be more of an abrasion with no overlying tissue to suture. Will DC home with clindamycin and wound care instructions. 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 Will discharge home with strict ED return precautions were given for repeat injury, deformity, neurologic deficits or severe pain. Encouraged urgent outpatient follow-up with PMD and hand surgery within 1 week. Life-threatening processes were considered but are low suspicion at this time, given history, physical exam and ED workup. Pt was educated on all prescription medications and adverse effects. All patient's questions were answered and pt was stable at time of discharge. Life/limb-threatening differential includes but is not limited to, trauma (fracture, dislocation, laceration, compartment syndrome, tendon or ligament injury), neurovascular injury or deficitcva/tia, infection (osteomyelitis, abscess, cellulitis, septic arthritis, necrotizing fasciitis), deep vein thrombosis, renal/cardiac/liver disease, medication adverse effect, lymphedema/anasarca, vascular insufficiency or malignancy, I spoken with the patient and her caregivers. I explained the patient's condition, diagnoses and treatment plan based on the information available to me at this time. I have answered the patient and her caregiver's questions and addressed any concerns. The patient and her caregivers have a good understanding of patient's diagnosis, condition and treatment plan as can be expected at this point. Vital signs have been stable. Patient's condition is stable and appropriate for discharge from the emergency department. Patient will pursue further outpatient evaluation with primary care physician or other designated or consulting physician as outlined in the discharge instructions. The patient and/or caregivers are agreeable to this plan of care and follow-up instructions have been explained in detail. The patient and/or caregivers have received these instructions in written form and have expressed an understanding of the discharge instructions. The patient and/or caregivers are aware that any significant change of condition or worsening of symptoms should prompt immediate return to this or the closest emergency department or call to [phone]. Alysia Disclaimer: Alysia Disclaimer: This electronic medical record was generated, in whole or in part, using a voice recognition dictation system. Departure Departure Impression: Primary Impression: Laceration of index finger of left hand without complication Additional Impression: Abrasion of left index finger, initial encounter Disposition: HOME / SELF CARE / HOMELESS Condition: IMPROVED Referrals: VITA ZEPEDA (PCP) In 1 to 2 weeks for routine care Patient Instructions: Abrasions, Wound Care, [id number] Additional Instructions: [facility] -FOR DEFINITIVE FINGER CARE IN 1 WEEK Appointments may be made with Robbie Sigala MD, Ab Perez MD, Brock Holguin MD or Dominic Baldwin MD, by calling [phone] EMERGENCY DEPARTMENT GENERAL DISCHARGE INSTRUCTIONS Thank you for coming to [facility] Emergency Department (ED) today and trusting us with you care. We trust that you had a positive experience in our Emergency Department. If you wish to speak to the department management, you may call the Director at [phone]. YOUR FOLLOW UP INSTRUCTIONS ARE FOLLOWS: 1. Do you have a private Doctor? If you do not have a private doctor, please ask for a resource list of physicians or clinics that may be able to assist you with follow up care. 2. The Emergency Physicain has interpreted your x-rays. The X-Ray specialist will also review them. If there is a change in the findings, you will be notified in 48 hours when at all possible. 3. A lab test or culture has been done, your results will be reviewed and you will be notified if you need a change in treatment. ADDITIONAL INSTRUCTIONS AND INFORMATION: 1. Your care today has been supervised by a physician who is specially trained in emergency care. Many problems require more than one evaluation for a complete diagnosis and treatment. We recommend that you schedule your follow up appointment as recommended to ensure complete treatment of you illness or injury. If you are unable to obtain follow up care and continue to have a problem, or if your condition worsens, we recommend that you return to the ED. 2. We are not able to safely determine your condition over the phone nor are we able to give sound medical advice over the phone. For these safety reasons, if you call for medical advice we will ask you to come to the ED for further evaluation. 3. If you have any questions regarding these discharge instructions please call the ED at [phone]. SAFETY INFORMATION: In the interest of safety, wellness, and injury prevention; we encourage you to wear your sealbelt, if you smoke; quite smoking, and we encourage family to use a protective helmet for bicycling and other sporting events that present an increased risk for head injury. IF YOUR SYMPTOMS WORSEN OR NEW SYMPTOMS DEVELOP, OR YOU HAVE CONCERNS ABOUT YOUR CONDITION; OR IF YOUR CONDITION WORSENS WHILE YOU ARE WAITING FOR YOUR FOLLOW UP APPOINT MENT; EITHER CONTACT YOUR PRIMARY CARE DOCTOR, THE PHYSICIAN WHOSE NAME AND NUMBER YOU WERE GIVEN, OR RETURN TO THE ED IMMEDIATELY. Scripts Neomycn/Baci Zn/Pmyx Bs/Pramox (NEOSPORIN + PAIN RELIEF OINT) 28.3 Gm Oint...g. 28.3 GM TP TID PRN for PAIN, #1 MISC Prov: RIRI HERNANDEZ DO 10/26/20 Clindamycin Hcl (CLINDAMYCIN HCL) 150 Mg Capsule 3 CAP PO TID for 7 Days, #63 CAP Prov: RIRI HERNANDEZ DO 10/26/20 RIRI HERNANDEZ DO Oct 26, 2020 01:29
[2020-10-26 01:50] VITALS: BP 163/95
== END 2020-10-26 01:50 | disposition home or self-care (01) ==
LOC: ER 18:44
DX: S61.211A Laceration without foreign body of left index finger without damage to nail, initial encounter (principal); Z91.041 Radiographic dye allergy status; Y28.8XXA Contact with other sharp object, undetermined intent, initial encounter; Y93.89 Activity, other specified; Y92.89 Other specified places as the place of occurrence of the external cause; Y99.8 Other external cause status
CPT/HCPCS: 64450; 73140; 99284; J3490